=== PATIENT | female | born 2005 | race Caucasian/White ===

== ENCOUNTER 2024-01-31 17:26 | Emergency (ER) | payer BC ==
[2024-01-31] MEDS ORDERED: Ketorolac Tromethamine 30 MG (1 mL) VIAL ONE (20:35)
[2024-01-31] MEDS ORDERED: Cyclobenzaprine 10 MG TAB ONE (20:43)
== END 2024-01-31 21:32 | disposition home or self-care (01) ==
LOC: ERS 17:26
DX: S06.0X0A Concussion without loss of consciousness, initial encounter (principal); S16.1XXA Strain of muscle, fascia and tendon at neck level, initial encounter; W01.198A Fall on same level from slipping, tripping and stumbling with subsequent striking against other object, initial encounter; Y93.21 Activity, ice skating
CPT/HCPCS: 70450; 96372; J1885